=== PATIENT | female | born 1985 | race Caucasian/White ===

== ENCOUNTER 2018-08-06 00:18 | Emergency (ER) | payer SELFPAY ==
[~2018-08-06] VITALS: Ht 160 cm; Wt 54.4 kg
--- NOTE | 2018-08-06 01:05 | NUR ---
TO BED 12 AMBULATORY C/O BLE SWELLING X1 WEEK. PT DENIES TRAUMA. PENDING ER MD ALMANZA.
--- NOTE | 2018-08-06 01:25 | NUR ---
PT AMBULATORY TO THE BATHROOM TO PROVIDE URINE SAMPLE.
[2018-08-06 01:43] LABS: BASOPHILS % (AUTO) 0.4 % (0.0-2.0); EOSINOPHILS % (AUTO) 3.7 % (0.0-6.0); HEMATOCRIT 37 % (33-45); HEMOGLOBIN 12.3 g/dL (11.5-14.8); LYMPHOCYTES # (AUTO) 1.6 /CMM (0.8-4.8); LYMPHOCYTES % (AUTO) 23.7 % (20.0-44.0); MEAN CORPUSCULAR HGB CONC 33 g/dl (31.0-36.0); MEAN CORPUSCULAR VOLUME 91 fL (82-100); MONOCYTES # (AUTO) 0.5 /CMM (0.1-1.30); MONOCYTES % (AUTO) 7.3 % (2.0-12.0); NEUTROPHILS # (AUTO) 4.5 /CMM (1.8-8.9); NEUTROPHILS % (AUTO) 64.9 % (43.0-81.0); PLATELET COUNT (AUTO) 318 /CMM (150-450); RDW COEFFICIENT OF VARIATION 14.2 (11.5-15.0); RED BLOOD CELL COUNT(AUTO) 4.09 MIL/uL (4.0-5.2); WHITE BLOOD COUNT (AUTO) 6.9 K/uL (4.3-11.0)
[2018-08-06 01:44] LABS: BILIRUBIN,URINE NEGATIVE (NEGATIVE); BLOOD, URINE 1+ Ery/uL (NEGATIVE); COLOR,URINE YELLOW (YELLOW); KETONES,URINE NEGATIVE (NEGATIVE); LEUKOCYTE ESTERASE ,URINE NEGATIVE (NEGATIVE); NITRITE, URINE NEGATIVE (NEGATIVE); PROTEIN,URINE 3+ mg/dl (NEGATIVE); UGLUCOSE NEGATIVE (NEGATIVE); UROBILINOGEN,URINE 0.2 EU/dL (0.2)
[2018-08-06 01:45] LABS: APPEARANCE,URINE SLIGHTLY CLOUDY (CLEAR)
[2018-08-06 01:51] LABS: CALCIUM, SERUM 7.7 mg/dL (8.5-10.1); CREATININE 0.7 mg/dL (0.6-1.3); POTASSIUM 3.6 mmol/L (3.5-5.1)
[2018-08-06 01:57] LABS: TOTAL PROTEIN, SERUM 4.7 g/dL (6.4-8.2)
[2018-08-06 02:02] LABS: BACTERIA,URINE Few /HPF (None Seen); SQUAMOUS EPITHELIAL CELL,UR Many /HPF (None Seen)
[2018-08-06] MEDS ORDERED: FUROSEMIDE 20 MG TABLET ONE (02:23)
--- NOTE | 2018-08-06 02:27 | NUR ---
Patient discharged to home in stable condition. Written and verbal after care instructions given. Patient verbalizes understanding of instruction. ambulatory with a steady gait
[2018-08-06 02:28] VITALS: BP 127/64
[2018-08-06] MEDS ORDERED: FUROSEMIDE 20 MG TABLET PO ONE (02:30)
== END 2018-08-06 02:30 | disposition home or self-care (01) ==
LOC: ER 00:23
DX: N04.9 Nephrotic syndrome with unspecified morphologic changes (principal); I50.9 Heart failure, unspecified; I49.8 Other specified cardiac arrhythmias
CPT/HCPCS: 36415; 71045; 80048; 80076; 81001; 84703; 85025; 93005; 99285; A4606; Z7610; 81000-TC

== ENCOUNTER → 2018-08-13 | Emergency (ER) | payer SELFPAY ==
[~2018-08-13] VITALS: Ht 160 cm; Wt 72.1 kg
--- NOTE | 2018-08-13 08:35 | NUR ---
EDMUND SELF WITH CC OF RETAINING FLUIDS" PT MISSED TAKING LASIX FOR COUPLE OF DAYS , ATTACHED TO MONITOR , VSS ,
--- NOTE | 2018-08-13 09:07 | NUR ---
Patient discharged to home in stable condition. Written and verbal after care instructions given. Patient verbalizes understanding of instruction. VSS ,
[2018-08-13 09:11] VITALS: BP 125/55
== END | disposition home or self-care (01) ==
LOC: ER 09:42
DX: N04.9 Nephrotic syndrome with unspecified morphologic changes (principal)
CPT/HCPCS: 99283; A4606; Z7610

== ENCOUNTER 2018-11-10 06:32 | Inpatient (IN) | payer MEDICAID ==
[~2018-11-10] VITALS: Ht 160 cm; Wt 74.4 kg
--- NOTE | 2018-11-10 07:07 | NUR ---
BLOOD COLLECTED AND SENT TO LAB
[2018-11-10] MEDS ORDERED: FUROSEMIDE 40 MG/4 ML VIAL ONE (07:14)
[2018-11-10 07:17] LABS: BASOPHILS # (AUTO) 0.1 /CMM (0.0-0.2); BASOPHILS % (AUTO) 1.1 % (0.0-2.0); EOSINOPHILS % (AUTO) 0.8 % (0.0-6.0); HEMATOCRIT 44 % (33-45); HEMOGLOBIN 14.9 g/dL (11.5-14.8); LYMPHOCYTES # (AUTO) 2.8 /CMM (0.8-4.8); LYMPHOCYTES % (AUTO) 21.8 % (20.0-44.0); MEAN CORPUSCULAR HGB CONC 34 g/dl (31.0-36.0); MEAN CORPUSCULAR VOLUME 91 fL (82-100); MONOCYTES % (AUTO) 7.8 % (2.0-12.0); NEUTROPHILS # (AUTO) 8.8 /CMM (1.8-8.9); NEUTROPHILS % (AUTO) 68.5 % (43.0-81.0); PLATELET COUNT (AUTO) 368 /CMM (150-450); RED BLOOD CELL COUNT(AUTO) 4.84 MIL/uL (4.0-5.2); WHITE BLOOD COUNT (AUTO) 12.8 K/uL (4.3-11.0)
[2018-11-10 07:26] LABS: CALCIUM, SERUM 7.3 mg/dL (8.5-10.1); CARBON DIOXIDE 28 mmol/L (21-32); CREATININE 1.1 mg/dL (0.6-1.3); GLUCOSE 99 mg/dL (74-106); UREA NITROGEN, BLOOD 17 mg/dL (7-18)
[2018-11-10] MEDS ORDERED: FUROSEMIDE 40 MG/4 ML VIAL IV ONE (07:30)
--- NOTE | 2018-11-10 07:45 | NUR ---
ASSUME PT CARE, SELF PRESENTS TO ER W/ C/O SOB, BILAT UPPER AND LOWER EXTREMITY EDEMA, STATES KIDNEY ISSUE AND TAKING LASIX FOR SOMETIME NOW W/ NO VISIBLE EFFECT. PT IS AAOX4. SEEN AND EVALUATED BY FRANCIS. PENDING LAB RESULTS.
[2018-11-10 07:55] LABS: ALANINE AMINOTRANSFERASE 27 U/L (12-78); ALKALINE PHOSPHATASE 59 U/L (46-116); ASPARTATE AMINOTRANSFERASE 59 U/L (15-37); B-TYPE NATRIURETIC PEPTIDE 140 PG/ML (0-125); BILIRUBIN,TOTAL 0.1 mg/dL (0.2-1.0); CHLORIDE 100 mmol/L (98-107); POTASSIUM 3.4 mmol/L (3.5-5.1); SODIUM SERUM 133 mmol/L (136-145); TOTAL PROTEIN, SERUM 4.2 g/dL (6.4-8.2)
[2018-11-10 07:58] LABS: ALBUMIN 0.5 g/dL (3.4-5.0)
[2018-11-10] MEDS ORDERED: PRED20TA PO (08:01)
[2018-11-10] MEDS ORDERED: BUME1TAB5 PO (08:01)
[2018-11-10 08:17] LABS: BAND % (MANUAL) 2 % (0.0-5.0); LYMPHOCYTES % (MANUAL) 25 % (16-48); MONOCYTES % (MANUAL) 10 % (0-11.0); NEUTROPHILS % (MANUAL) 63 (42-76)
--- NOTE | 2018-11-10 08:41 | NUR ---
[facility] BED 207-1
--- NOTE | 2018-11-10 09:01 | NUR ---
REPORT GIVEN TO KIRILL HUFF. PT AWAITING TRANSFER TO FLOOR.
[2018-11-10 10:00] VITALS: BP 157/84
--- NOTE | 2018-11-10 10:30 | NUR ---
MS HUFF ADMITTING NOTES ADMITTED PT FROM ER WITH DX OF RENAL FAILURE/NEPHROTIC SYNDROME WITH ANASARCA DUE TO KIDNEY DISORDER.PT IS ALERT AND ORIENTED X4.VERBALLY RESPONSIVE.AMBULATES AD JEWEL WITH STEADY GAIT.WITH EDEMA ON GABBIE FEET 2-3+ .SKIN INTACT.DENIES ANY DISCOMFORT AT THIS TIME.ORIENTATION TO HER ROOM AND USE OF CALL LIGHT.IV H/L INTACT TO AC.DR ROSA MADE AWARE OF THE ADMISSION.CALL LIGHT PLACED WITHIN REACH. Addendum: 11/10/18 at 1838 by KIRILL LESTER RN WITH NON-PITTING EDEMA IN BLE ( ANKLE AND ABOVE)BUT NOT GABBIE FEET.
[2018-11-10 10:44] VITALS: BP 157/84
[2018-11-10] MEDS ORDERED: predniSONE 20 MG TABLET PO SCH (13:00)
[2018-11-10] MEDS ORDERED: ONDANSETRON HCL/PF 4 MG/2 ML VIAL IV PRN (14:30)
[2018-11-10] MEDS: BUMETANIDE (1 MG) 1 MG TABLET PO SCH ×2 (14:53→17:29)
[2018-11-10] MEDS: POTASSIUM CHLORIDE 20 MEQ TAB.PRT.SR PO SCH (14:53)
[2018-11-10 16:00] VITALS: BP 138/84
--- NOTE | 2018-11-10 18:38 | NUR ---
PT RESTING IN BED WITH ONE EPISODE OF SMALL SOFT STOOL.PT VERBALIZED SHE WAS HAVING DIARRHEA SINCE WEDNESDAY.PT KEEPS REQUESTING FOR MILK.INSTRUCTED PT TO STOP DRINKING MILK AND STOP EATING DAIRIES.INSTRUCTED PT TO CALL THE NURSE WHEN SHE HAD EPISODE OF DIARRHEA AND NOT TO FLUSH THE TOILET.DENIES ANY PAIN OR DISTRESS.PT APPEARS ANXIOUS OF BEING DISCHARGED TODAY.INSTRUCTED PT THAT SHE WILL STAY FOR TONIGHT IN THE HOSPITAL TO BE MONITORED.CALL LIGHT PLACED WITHIN REACH.
--- NOTE | 2018-11-10 19:30 | NUR ---
RECEIVED PATIENT IN BED AWAKE. AO X 3, ABLE TO MAKE NEEDS KNOWN. NO ACUTE DISTRESS NOTED. NO SIGNS OF PAIN NOTED. IV SITE PATENT, INTACT; FLUSHED. SAFETY REMINDERS GIVEN. ON LOW BED WITH BILATERAL UPPER SIDE RAILS UP. CALL CARABALLO WITHIN EASY REACH. WILL CONTINUE TO MONITOR.
[2018-11-10 20:00] VITALS: BP 130/78
[2018-11-10 20:11] VITALS: BP 130/78
[2018-11-10] MEDS ORDERED: ACETAMINOPHEN 325 MG TABLET PO PRN (20:30)
[2018-11-10] MEDS ORDERED: MAGNESIUM HYDROXIDE 30 ML UDC PO PRN (20:30)
[2018-11-10] MEDS ORDERED: ONDANSETRON HCL/PF 4 MG/2 ML VIAL IVP PRN (20:30)
[2018-11-10] MEDS ORDERED: MAG HYDROX/AL HYDROX/SIMETH 30 ML UDC PO PRN (20:30)
[2018-11-10] MEDS ORDERED: ZOLPIDEM TARTRATE 5 MG TABLET PO PRN (20:30)
[2018-11-10] MEDS ORDERED: Z GUARD REMEDY 2 OZ OINT TP PRN (20:30)
[2018-11-10] MEDS ORDERED: HYDROCODONE/APAP 5/325MG 1 EACH TABLET PO PRN (20:30)
[2018-11-10] MEDS: FAMOTIDINE (20 MG) 20 MG TABLET PO SCH (21:42)
--- NOTE | 2018-11-11 06:00 | NUR ---
PATIENT ASLEEP, EASILY AROUSABLE. RESPIRATIONS EVEN. NO SIGNS OF PAIN NOTED. NAUSEA RELIEVED BY ZOFRAN IV. DUE MED GIVEN WITH NO ASE NOTED. NEEDS ATTENDED. SAFETY PRECAUTIONS AND COMFORT MEASURES IN PLACE. WILL GIVE REPORT TO DAY SHIFT FOR CONTINUITY OF CARE. FAMILY AT BEDSIDE.
[2018-11-11 06:06] LABS: APPEARANCE,URINE CLOUDY (CLEAR); BILIRUBIN,URINE NEGATIVE (NEGATIVE); BLOOD, URINE 2+ Ery/uL (NEGATIVE); COLOR,URINE YELLOW (YELLOW); KETONES,URINE NEGATIVE (NEGATIVE); LEUKOCYTE ESTERASE ,URINE NEGATIVE (NEGATIVE); NITRITE, URINE POSITIVE (NEGATIVE); PROTEIN,URINE 3+ mg/dl (NEGATIVE); UGLUCOSE NEGATIVE (NEGATIVE); UROBILINOGEN,URINE 0.2 EU/dL (0.2)
[2018-11-11 06:14] LABS: BACTERIA,URINE Many /HPF (None Seen); SQUAMOUS EPITHELIAL CELL,UR Few /HPF (None Seen)
[2018-11-11 06:29] LABS: EOSINOPHIL,URINE None Seen
[2018-11-11 07:04] LABS: BASOPHILS # (AUTO) 0.1 /CMM (0.0-0.2); BASOPHILS % (AUTO) 0.9 % (0.0-2.0); EOSINOPHILS % (AUTO) 2.2 % (0.0-6.0); HEMATOCRIT 46 % (33-45); HEMOGLOBIN 15.2 g/dL (11.5-14.8); LYMPHOCYTES # (AUTO) 2.2 /CMM (0.8-4.8); LYMPHOCYTES % (AUTO) 22.7 % (20.0-44.0); MEAN CORPUSCULAR HGB CONC 34 g/dl (31.0-36.0); MEAN CORPUSCULAR VOLUME 91 fL (82-100); MONOCYTES # (AUTO) 0.9 /CMM (0.1-1.30); MONOCYTES % (AUTO) 9.3 % (2.0-12.0); NEUTROPHILS # (AUTO) 6.3 /CMM (1.8-8.9); NEUTROPHILS % (AUTO) 64.9 % (43.0-81.0); PLATELET COUNT (AUTO) 357 /CMM (150-450); RED BLOOD CELL COUNT(AUTO) 5.01 MIL/uL (4.0-5.2); WHITE BLOOD COUNT (AUTO) 9.8 K/uL (4.3-11.0)
[2018-11-11 07:22] LABS: CALCIUM, SERUM 7.3 mg/dL (8.5-10.1); CREATININE 0.8 mg/dL (0.6-1.3); MAGNESIUM 1.9 mg/dL (1.8-2.4); PHOSPHORUS 4.2 mg/dL (2.5-4.9); POTASSIUM 3.6 mmol/L (3.5-5.1)
--- NOTE | 2018-11-11 07:40 | NUR ---
MS RN OPENING NOTES RECEIVED PT AWAKE IN BED IN NO ACUTE SIGNS OF DISTRESS. HOB ELEVATED. A/O X4. ABLE TO VERBALIZED NEEDS, NO C/O PAIN OR DISCOMFORTS VOICED AT THIS TIME. ON ROOM AIR, BREATHING EVEN AND UNLABORED. IV ACCESS ON LAC INTACT AND PATENT, FLUSHES WELL. SAFETY MEASURES IN PLACE. BED IN LOW LOCKED POSITION WITH SIDE-RAILS UP X2. CALL LIGHT IN REACH. WILL CONTINUE TO MONITOR PT.
[2018-11-11 07:44] LABS: URINE TOTAL PROTEIN 1005.9 mg/dL (0-11.9)
[2018-11-11 08:00] VITALS: BP 116/84
[2018-11-11] MEDS: POTASSIUM CHLORIDE 20 MEQ TAB.PRT.SR PO SCH (08:32)
[2018-11-11] MEDS: FAMOTIDINE (20 MG) 20 MG TABLET PO SCH (08:32)
[2018-11-11] MEDS: BUMETANIDE (1 MG) 1 MG TABLET PO SCH (08:33)
[2018-11-11] MEDS ORDERED: predniSONE 20 MG TABLET PO SCH (09:00)
--- NOTE | 2018-11-11 12:22 | NUR ---
POST OFFICE MANAGER NOTES PATIENT LEFT UNIT AGAINST MEDICAL ADVISE FROM [facility]. EXPLAINED RISKS AND BENEFITS OF GOING HOME AMA BUT STILL INSISTED TO GO. DR CAICEDO CALLED AND MADE AWARE. PT SIGNED AMA FORM AND FILED ON CHART. PT A/O X4, AMBULATORY AND ABLE TO MAKE NEEDS KNOWN. ALL NEEDS AND CARE ATTENDED WELL. ALL BELONGINGS ACCOUNTED FOR AND SIGNED FORM. IV ACCESS REMOVED WITH NO BLEEDING NOTED. PT REFUSED HEALTH TEACHINGS AND ANY DISCHARGE INSTRUCTIONS. PT LEFT UNIT AT 1210 AMBULATORY AND IN NO ACUTE SIGNS OF DISTRESS ACCOMPANIED BY 2 FRIENDS. MD AND NURSE ESTHETICIAN AND MANAGER MEDICAL SPA MADE AWARE.
--- NOTE | 2018-11-11 16:55 | NUR ---
Patient lives alone, she is ambulatory and independent with adl's. Denies any dc planning needs at this time. Patient was advised to f/u with pcp and return to nearest [facility] if symptoms worsens or failed to improve. Addendum: 11/11/18 at 1711 by EDWIGE CAT RN Amended: Links added.
== END 2018-11-11 12:10 | disposition left against medical advice (07) | DRG 462 ==
LOC: ER 06:34 → TELE2 09:16 → MEDSG2 10:31
PROVIDERS: ADMIT Student in an Organized Health Care Education/Training Program; ATTEND Student in an Organized Health Care Education/Training Program
DX: N04.1 Nephrotic syndrome with focal and segmental glomerular lesions (principal); E43 Unspecified severe protein-calorie malnutrition; R60.1 Generalized edema; D72.829 Elevated white blood cell count, unspecified; F41.9 Anxiety disorder, unspecified; Z88.0 Allergy status to penicillin; Z68.29 Body mass index [BMI] 29.0-29.9, adult; T38.0X5A Adverse effect of glucocorticoids and synthetic analogues, initial encounter; Y92.009 Unspecified place in unspecified non-institutional (private) residence as the place of occurrence of the external cause; E88.09 Other disorders of plasma-protein metabolism, not elsewhere classified
CPT/HCPCS: 36415; 71045-TC; 80048-TC; 80076-TC; 81000-TC; 82570-TC; 83735-TC; 83880; 84100-TC; 84155-TC; 84300-TC; 84484-TC; 85025-TC; 85730-TC; 87081-TC; 87086-TC; 93971-TC; G0378; J1940; J2405